=== PATIENT | male | born 1970 | race Hispanic/Latino ===

== ENCOUNTER 2021-08-24 17:32 | Emergency (ER) | payer OTHER ==
[2021-08-24] MEDS ORDERED: ONDANSETRON 4 MG/2 ML VIAL ONE (18:19)
[2021-08-24] MEDS ORDERED: ASPIRIN 81 MG CHEWABLE TABLET ONE (18:19)
[2021-08-24] MEDS ORDERED: MORPHINE 4 MG/ML SYR ONE (18:19)
--- NOTE | 2021-08-24 18:39 | RAD REPORT ---
EXAM DESCRIPTION: Seth Single View08/24/2021 6:21 pm CLINICAL HISTORY: Chest pain COMPARISON: none FINDINGS: The lungs appear clear of acute infiltrate. The heart is normal size IMPRESSION: No acute abnormalities displayed
[2021-08-24 18:40] LABS: Absolute Lymphocytes (CBC) 2.3 K/uL (0.7-4.9); Hematocrit 41.8 % (39.6-49.0); Lymphocytes % 29.1 % (15.3-44.8); MPV 8.2 fL (7.6-11.3); RBC Red Blood Cell Count 4.66 M/uL (4.33-5.43)
[2021-08-24 18:43] LABS: Protime INR 1.18
[2021-08-24 19:00] LABS: ALT/SGPT 85 U/L (12-78); AST/SGOT 25 U/L (15-37); Albumin 3.6 g/dL (3.4-5.0); Alkaline Phosphatase 118 U/L (45-117); BUN Blood Urea Nitrogen 8 mg/dL (7-18); Bicarbonate 25 mmol/L (21-32); Bilirubin Direct < 0.1 mg/dL (0-0.2); Bilirubin Total 0.3 mg/dL (0.2-1.0); Glucose Level 106 mg/dL (74-106); Magnesium 2.3 mg/dL (1.8-2.4); NT PRO-BNP 22 pg/mL (<125); Potassium 3.4 mmol/L (3.5-5.1); Protein, Total 7.5 g/dL (6.4-8.2); Sodium Level 141 mmol/L (136-145); Troponin High Sensitivity 3.9 pg/mL (<58.9)
--- NOTE | 2021-08-24 20:53 | RAD REPORT ---
EXAM DESCRIPTION: CT - Chest For Pe Angio - 08/24/2021 8:35 pm CLINICAL HISTORY: sob COMPARISON: None. TECHNIQUE: Dynamically enhanced axial 3 mm thick images of the chest were obtained during administra tion of <100> mL Isovue 370 IV contrast. Coronal and oblique reconstruction images were generated and reviewed. Exam utilizes a protocol for optimal evaluation of pulmonary arterial tree. Maximum intensity projections 3D imaging was utilized All CT scans are performed using dose optimization technique as appropriate and may include automated exposure control or mA/KV adjustment according to patient size. FINDINGS: A pulmonary embolus is not seen. A thoracic aortic aneurysm is not noted. A pleural effusion is not seen. A pericardial effusion is not seen. A lung consolidation is not present. Aberrant right subclavian artery IMPRESSION: Negative for a pulmonary embolism.
[2021-08-24] MEDS ORDERED: KETOROLAC 30 MG/ML INJ ONE (23:14)
--- NOTE | 2021-08-24 23:36 | EDPHYS ---
Physician Documentation [facility] Name: Jerry Kirkpatrick Age: 51 yrs Sex: Male : 1970 Arrival Date: 08/24/2021 Time: 17:33 Bed 14 Private MD: ED Physician Reva Ruiz HPI: 08/24 17:45 This 51 yrs old Male presents to ER via Ambulatory with complaints of Chest jmm Pain. 17:45 The patient or guardian reports chest pain that is located primarily in the substernal [facility] area. Onset: acutely, just prior to arrival. The pain does not radiate. Associated signs and symptoms: Pertinent positives: shortness of breath. The chest pain is described as aching, sharp. Duration: The patient or guardian reports a single episode, that is still ongoing. Modifying factors: The symptoms are alleviated by nothing. the symptoms are aggravated by nothing. The patient has experienced a previous episode. Historical: - Allergies: 17:43 tramadol; ab2 - PMHx: 17:43 Hypertensive disorder; Depressive disorder; Gastric reflux; ab2 - Immunization history:: Adult Immunizations up to date. - Social history:: Smoking status: Patient denies any tobacco usage or history of. ROS: 17:45 Constitutional: Negative for fever, chills, and weight loss. jmm 17:45 Cardiovascular: Positive for chest pain. 17:45 Respiratory: Positive for shortness of breath. 17:45 All other systems are negative. Exam: 17:45 Constitutional: This is a well developed, well nourished patient who is awake, alert, jmm and in no acute distress. Head/Face: atraumatic. Eyes: EOMI, no conjunctival erythema appreciated ENT: Moist Mucus Membranes Neck: Trachea midline, Supple Chest/axilla: Normal chest wall appearance and motion. 17:45 Respiratory: Normal respirations, no respiratory distress appreciated Abdomen/GI: Non distended, soft Back: Normal ROM Skin: General appearance color normal MS/ Extremity: Moves all extremities, no obvious deformities appreciated, no edema noted to the lower extremities Neuro: Awake and alert Psych: Behavior is normal, Mood is normal, Patient is cooperative and pleasant 17:45 Cardiovascular: Rate: tachycardic, Rhythm: regular, Pulses: no pulse deficits are appreciated. Vital Signs: 17:42 BP 139 / 102; Pulse 127; Resp 18; Temp 98.9; Pulse Ox 99% ; Weight 86.18 kg; Height 5 ab2 ft. 9 in. (175.26 cm); Pain 8/10; 17:45 BP 144 / 99; Pulse 128; Resp 25 S; Pulse Ox 99% on R/A; jg9 18:00 BP 132 / 100; Pulse 117; Resp 26 S; Pulse Ox 95% on R/A; jg9 18:30 BP 139 / 102; Pulse 106; Resp 14 S; Pulse Ox 96% on R/A; jg9 19:28 BP 133 / 96; Pulse 103; Resp 22; Pulse Ox 95% on R/A; Pain 3/10; celena 20:22 BP 134 / 96; Pulse 98; Resp 22; Pulse Ox 95% on R/A; celena 22:12 BP 149 / 98; Pulse 99; Resp 20; Pulse Ox 95% on R/A; celena 23:43 BP 132 / 95; Pulse 79; Resp 20; Pulse Ox 96% on R/A; Pain 2/10; celena 17:42 Body Mass Index 28.06 (86.18 kg, 175.26 cm) ab2 MDM: 17:48 Patient medically screened. [facility] 23:09 The patient was given aspirin in the Emergency Department. Data reviewed: vital signs, [facility] nurses notes. 08/24 17:49 Order name: Basic Metabolic Panel; Complete Time: 19:02 [facility] 08/24 17:49 Order name: CBC with Diff; Complete Time: 18:47 [facility] 08/24 17:49 Order name: LFT's; Complete Time: 19:02 [facility] 08/24 17:49 Order name: Magnesium; Complete Time: 19:02 [facility] 08/24 17:49 Order name: NT PRO-BNP; Complete Time: 19:02 [facility] 08/24 17:49 Order name: PT-INR; Complete Time: 18:47 [facility] 08/24 17:49 Order name: Troponin HS; Complete Time: 19:02 [facility] 08/24 17:49 Order name: XRAY Chest (1 view); Complete Time: 19:02 [facility] 08/24 19:43 Order name: CT Chest For PE Angio; Complete Time: 20:57 [facility] 08/24 21:24 Order name: Troponin High Sensitivity; Complete Time: 22:52 [facility] 08/24 17:45 Order name: EKG - Nurse/Tech; Complete Time: 17:45 ab2 08/24 17:49 Order name: EKG; Complete Time: 17:50 [facility] 08/24 17:49 Order name: Cardiac monitoring; Complete Time: 18:27 [facility] 08/24 17:49 Order name: EKG - Nurse/Tech; Complete Time: 18:13 [facility] 08/24 17:49 Order name: IV Saline Lock; Complete Time: 18:27 [facility] 08/24 17:49 Order name: Labs collected and sent; Complete Time: 18:27 [facility] 08/24 17:49 Order name: O2 Per Protocol; Complete Time: 22:58 [facility] 08/24 17:49 Order name: O2 Sat Monitoring; Complete Time: 18:27 [facility] Administered Medications: 18:25 Drug: Aspirin Chewable Tablet 324 mg Route: PO; j9 18:53 Follow up: Response: No adverse reaction 9 18:25 Drug: morphine 4 mg {Note: RASS-0.} Route: IVP; Site: right forearm; jg9 18:53 Follow up: Response: No adverse reaction; Pain is decreased j9 18:25 Drug: Zofran (Ondansetron) 4 mg Route: IVP; Site: right forearm; jg9 18:53 Follow up: Response: No adverse reaction 9 23:14 Drug: Ketorolac 30 mg Route: IVP; Site: right forearm; celena 23:15 Follow up: Response: No adverse reaction celena Disposition Summary: 08/24/21 23:36 Discharge Ordered Location: Home [facility] Condition: Stable [facility] Diagnosis - Chest pain, unspecified [facility] Followup: [facility] - With: Fan Santos MD - When: 2 - 3 days - Reason: Recheck today's complaints, Continuance of care, Re-evaluation by your physician Discharge Instructions: - Discharge Summary Sheet [facility] - Nonspecific Chest Pain, Adult [facility] Forms: - Medication Reconciliation Form [facility] - Thank You Letter [facility] - Antibiotic Education [facility] - Prescription Opioid Use [facility] Signatures: Dispatcher [employer] EDMarquez Washington PA PA [facility] Kasia Carcamo RN RN jg9 Brittany Angulo RN RN bo Bleininger, Alexis ab2 Corrections: (The following items were deleted from the chart) 17:44 17:43 Allergies: No Known Allergies; ab2 ab2
--- NOTE | 2021-08-24 23:36 | ER ---
Nurse's Notes [facility] Name: Jerry Kirkpatrick Age: 51 yrs Sex: Male : 1970 Arrival Date: 08/24/2021 Time: 17:33 Bed 14 Private MD: Diagnosis: Chest pain, unspecified Presentation: 08/24 17:42 Chief complaint: Patient states: "I started feeling weak and dizzy and then began ab2 having chest pain and SOB.". Coronavirus screen: Vaccine status: Patient reports receiving the 2nd dose of the covid vaccine. Client denies travel out of the [place] in the last 14 days. At this time, the client does not indicate any symptoms associated with coronavirus-19. Ebola Screen: Patient negative for fever greater than or equal to 101.5 degrees Fahrenheit, and additional compatible Ebola Virus Disease symptoms Patient denies exposure to infectious person. Patient denies travel to an Ebola-affected area in the 21 days before illness onset. No symptoms or risks identified at this time. Initial Sepsis Screen: Does the patient meet any 2 criteria? No. Patient's initial sepsis screen is negative. Does the patient have a suspected source of infection? No. Patient's initial sepsis screen is negative. Risk Assessment: Do you want to hurt yourself or someone else? Patient reports no desire to harm self or others. Onset of symptoms is unknown. 17:42 Method Of Arrival: Ambulatory ab2 17:42 Acuity: MARTIN 3 ab2 Triage Assessment: 17:44 General: Appears in no apparent distress. uncomfortable, Behavior is calm, cooperative, ab2 appropriate for age. Pain: Complains of pain in chest. Neuro: Level of Consciousness is awake, alert, obeys commands, Oriented to person, place, time, situation, Appropriate for age Dumper are equal bilaterally Moves all extremities. Gait is steady, Speech is normal, Facial symmetry appears normal. Cardiovascular: Reports chest pain, shortness of breath, Heart tones S1 S2 present Patient's skin is warm and dry. Rhythm is sinus tachycardia. Respiratory: Airway is patent Respiratory effort is even, unlabored, Respiratory pattern is regular, symmetrical. Historical: - Allergies: 17:43 tramadol; ab2 - PMHx: 17:43 Hypertensive disorder; Depressive disorder; Gastric reflux; ab2 - Immunization history:: Adult Immunizations up to date. - Social history:: Smoking status: Patient denies any tobacco usage or history of. Screenin:54 Abuse screen: Denies threats or abuse. Denies injuries from another. Nutritional jg9 screening: No deficits noted. Tuberculosis screening: No symptoms or risk factors identified. Fall Risk None identified. Assessment: 18:53 Pain: Complains of pain in chest Pain does not radiate. Pain began 4 hours ago. jg9 18:54 Reassessment: Patient and/or family updated on plan of care and expected duration. Pain jg9 level reassessed. Patient is alert, oriented x 3, equal unlabored respirations, skin warm/dry/pink. Patient states feeling better. 19:27 Reassessment: Patient appears in no apparent distress at this time. No changes from celena previously documented assessment. The pt still reports feeling SOB, but O2 sat remains above 95% on RA. 20:34 Reassessment: The pt was taken to CT on the stretcher. celena 20:39 Reassessment: The pt has returned from CT. celena 22:10 Reassessment: The pt was given a sandwich, after he requested one. The repeat Troponin celena was sent. Vital Signs: 17:42 BP 139 / 102; Pulse 127; Resp 18; Temp 98.9; Pulse Ox 99% ; Weight 86.18 kg; Height 5 ab2 ft. 9 in. (175.26 cm); Pain 8/10; 17:45 BP 144 / 99; Pulse 128; Resp 25 S; Pulse Ox 99% on R/A; jg9 18:00 BP 132 / 100; Pulse 117; Resp 26 S; Pulse Ox 95% on R/A; jg9 18:30 BP 139 / 102; Pulse 106; Resp 14 S; Pulse Ox 96% on R/A; jg9 19:28 BP 133 / 96; Pulse 103; Resp 22; Pulse Ox 95% on R/A; Pain 3/10; celena 20:22 BP 134 / 96; Pulse 98; Resp 22; Pulse Ox 95% on R/A; celena 22:12 BP 149 / 98; Pulse 99; Resp 20; Pulse Ox 95% on R/A; celena 23:43 BP 132 / 95; Pulse 79; Resp 20; Pulse Ox 96% on R/A; Pain 2/10; celena 17:42 Body Mass Index 28.06 (86.18 kg, 175.26 cm) ab2 ED Course: 17:33 Patient arrived in ED. am2 17:41 Marquez Workman PA is PHCP. jmm 17:41 Rvea Ruiz MD is Attending Physician. jmm 17:43 Triage completed. ab2 17:44 Arm band placed on right wrist. ab2 17:44 Patient has correct armband on for positive identification. Placed in gown. Bed in low ab2 position. Call light in reach. Side rails up X2. hall monitor on. Pulse ox on. NIBP on. 18:13 Kasia Carcamo, RN is Primary Nurse. jg9 18:20 Inserted saline lock: 18 gauge in right forearm, using aseptic technique. Blood jg9 collected. 18:23 XRAY Chest (1 view) In Process Unspecified. EDMS 18:54 Patient maintains SpO2 saturation greater than 95% on room air. jg9 19:27 Primary Nurse role handed off by Kasia Carcamo, MELLISSA celena 19:27 Brittany Angulo, RN is Primary Nurse. celena 19:29 No provider procedures requiring assistance completed. celena 20:37 CT Chest For PE Angio In Process Unspecified. EDMS 22:06 Troponin High Sensitivity Sent. celena 23:35 Fan Santos MD is Referral Physician. jmm 23:44 intact, bleeding controlled, No redness/swelling at site. Pressure dressing applied. celena Administered Medications: 18:25 Drug: Aspirin Chewable Tablet 324 mg Route: PO; jg9 18:53 Follow up: Response: No adverse reaction jg9 18:25 Drug: morphine 4 mg {Note: RASS-0.} Route: IVP; Site: right forearm; jg9 18:53 Follow up: Response: No adverse reaction; Pain is decreased jg9 18:25 Drug: Zofran (Ondansetron) 4 mg Route: IVP; Site: right forearm; jg9 18:53 Follow up: Response: No adverse reaction jg9 23:14 Drug: Ketorolac 30 mg Route: IVP; Site: right forearm; celena 23:15 Follow up: Response: No adverse reaction celena Outcome: 19:29 Condition: stable celena 23:36 Discharge ordered by . jmm 23:44 Discharged to home ambulatory, with family. celena 23:44 Discharge instructions given to patient, Instructed on discharge instructions, follow celena up and referral plans. Demonstrated understanding of instructions, follow-up care. 23:44 Patient left the ED. celena Signatures: Dispatcher [employer] EDMarquez Washington PA PA jmm Moreno, Amanda am2 Gilmore, Jennifer RN RN jg9 Brittany Angulo RN RN bo Bleininger, Alexis ab2 Corrections: (The following items were deleted from the chart) 17:44 17:43 Allergies: No Known Allergies; ab2 ab2
[2021-08-24 23:51] VITALS: TEMP 98.9
[2021-08-25 00:21] VITALS: BP 132/95; O2SAT 96
== END 2021-08-24 23:44 | disposition home or self-care (01) ==
LOC: ER 17:32
DX: R07.9 Chest pain, unspecified (principal); I10 Essential (primary) hypertension; F32.A Depression, unspecified; K21.9 Gastro-esophageal reflux disease without esophagitis; Z88.6 Allergy status to analgesic agent
CPT/HCPCS: 93005; 85025; 80048; 36415; 83735; 85610; 80076; 84484 ×2; 83880; 71275; 71045; 96375; 96374; 99285; Q9967; J2405

== ENCOUNTER 2022-05-09 14:21 | Emergency (ER) | payer SELFPAY ==
[2022-05-09] MEDS ORDERED: KETOROLAC 30 MG/ML INJ ONE (16:34)
--- NOTE | 2022-05-09 17:02 | RAD REPORT ---
EXAM DESCRIPTION: Ribs Right - 05/09/2022 4:46 pm CLINICAL HISTORY: Right rib pain FINDINGS: No fracture is seen
--- NOTE | 2022-05-09 18:27 | RAD REPORT ---
EXAM DESCRIPTION: CT - Chest Abdomen Pelvis W Cont - 05/09/2022 6:06 pm CLINICAL HISTORY: Chest and abdominal pain COMPARISON: CT chest August 2021 TECHNIQUE: Computed axial tomography of the chest, abdomen and pelvis was obtained. 100 cc Isovue-30 0 was administered intravenously. Oral contrast was not requested. This limits evaluation of bowel. All CT scans are performed using dose optimization technique as appropriate and may include automated exposure control or mA/KV adjustment according to patient size. FINDINGS: Lungs are clear. No pneumothorax. No pleural effusion. A pericardial effusion is not present. No mediastinal or hilar lymphadenopathy. An aberrant right subclavian artery is present. Liver, spleen, pancreas, adrenals are unremarkable. Small renal cysts. Tiny nonobstructing left renal calculus. The liver, spleen, pancreas, adrenals and kidneys appear unremarkable. No evidence of diverticulitis Normal appendix IMPRESSION: No acute abnormality is displayed
--- NOTE | 2022-05-09 19:13 | EDPHYS ---
Physician Documentation [facility] Name: Jerry Kirkpatrick Age: 52 yrs Sex: Male : 1970 Arrival Date: 05/09/2022 Time: 14:24 Bed 12 Private MD: Rogelio Lou HPI: 05/09 15:16 This 52 yrs old Male presents to ER via Ambulatory with complaints of jmm Abdominal Pain. 15:16 The patient presents with abdominal pain. Onset: The symptoms/episode began/occurred jmm acutely, today. The symptoms do not radiate. The symptoms are described as sharp. This is a 52-year-old male with history of depression, hypertension that presents emerged part with complaints of right flank and right upper quadrant abdominal pain beginning after an episode of coughing. Patient states that he felt a pop. Denies any vomiting, diarrhea, fever.. Historical: - Allergies: 14:47 tramadol; ap3 - Home Meds: 14:47 gabapentin oral [Active]; amlodipine oral [Active]; ap3 - PMHx: 14:47 depressive disorder; Gastric Reflux; Hypertensive disorder; ap3 - Immunization history:: Client reports receiving the 2nd dose of the Covid vaccine, Flu vaccine is not up to date. - Social history:: Smoking status: Patient denies any tobacco usage or history of. Patient uses alcohol, occasionally. ROS: 15:16 Constitutional: Negative for fever, chills, and weight loss, Cardiovascular: Negative jmm for chest pain, palpitations, and edema, Respiratory: Negative for shortness of breath, cough, wheezing, and pleuritic chest pain. 15:16 Abdomen/GI: Positive for abdominal pain. 15:16 All other systems are negative. Exam: 15:16 Constitutional: This is a well developed, well nourished patient who is awake, alert, jmm and in no acute distress. Head/Face: atraumatic. Eyes: EOMI, no conjunctival erythema appreciated ENT: Moist Mucus Membranes Neck: Trachea midline, Supple 15:16 Cardiovascular: Regular rate and rhythm. No edema appreciated Respiratory: Normal respirations, no respiratory distress appreciated 15:16 Back: Normal ROM Skin: General appearance color normal MS/ Extremity: Moves all extremities, no obvious deformities appreciated, no edema noted to the lower extremities Neuro: Awake and alert Psych: Behavior is normal, Mood is normal, Patient is cooperative and pleasant 15:16 Chest/axilla: Right anterior lateral lower ribs tender to palpation. 15:16 Abdomen/GI: Inspection: abdomen appears normal, Bowel sounds: normal, Palpation: soft, mild abdominal tenderness, in the right upper quadrant. Vital Signs: 14:46 BP 153 / 96; Pulse 76; Resp 18; Temp 99.0; Pulse Ox 98% ; Weight 90.26 kg; Height 5 ft. ap3 9 in. (175.26 cm); Pain 8/10; 17:38 BP 150 / 92; Pulse 70; Resp 15 S; Temp 97.9(O); Pulse Ox 98% on R/A; aa5 19:21 BP 145 / 85; Pulse 72; Resp 19; Pulse Ox 100% on R/A; kd3 14:46 Body Mass Index 29.39 (90.26 kg, 175.26 cm) ap3 MDM: 15:23 Patient medically screened. [facility] 19:11 Data reviewed: vital signs, nurses notes. Counseling: I had a detailed discussion with millicent the patient and/or guardian regarding: the historical points, exam findings, and any diagnostic results supporting the discharge/admit diagnosis, radiology results, the need for outpatient follow up, to return to the emergency department if symptoms worsen or persist or if there are any questions or concerns that arise at home. ED course: Imaging studies are negative for any acute process. I do not currently suspect rib fracture, pneumothorax. Patient vies follow-up PCP otherwise given strict return precautions. Patient understood agrees plan of care.. 05/09 17:28 Order name: Creatinine, Serum zm 05/09 15:16 Order name: Ribs Right XRAY; Complete Time: 17:06 [facility] 05/09 17:14 Order name: CT Chest, Abdomen, Pelvis - W/Contrast; Complete Time: 18:31 [facility] 05/09 17:27 Order name: Saline Lock; Complete Time: 17:48 zm Administered Medications: 16:36 Drug: Ketorolac 30 mg Route: IM; Site: right gluteus; aa5 17:48 Follow up: Response: No adverse reaction; Pain is decreased aa5 Disposition Summary: 05/09/22 19:12 Discharge Ordered Location: Home [facility] Condition: Stable aaliyah Diagnosis - Right chest wall strain [facility] Followup: aaliyahm - With: Private Physician - When: 2 - 3 days - Reason: Recheck today's complaints, Continuance of care, Re-evaluation by your physician Discharge Instructions: - Discharge Summary Sheet millic[facility] - Chest Wall Pain [facility] Forms: - Medication Reconciliation Form millicent - Thank You Letter millicent - Antibiotic Education millicent - Prescription Opioid Use millicent Prescriptions: - Zanaflex 4 mg Oral Tablet - take 1 tablet by ORAL route every 8 hours As needed; 20 tablet; Refills: 0, jm Product Selection Permitted - Diclofenac Sodium 75 mg Oral Tablet Sustained Release - take 1 tablet by ORAL route 2 times per day; 30 tablet; Refills: 0, Product [facility] Selection Permitted Signatures: Dispatcher [employer] EDRogelio Castellon MD MD cha Mickail, Joel, PA PA jmm Calderon, Audri, RN RN aa5 Lillian Moore RN RN ap3 Ashwini Valero
--- NOTE | 2022-05-09 19:13 | ER ---
Nurse's Notes [facility] Name: Jerry Kirkpatrick Age: 52 yrs Sex: Male : 1970 Arrival Date: 05/09/2022 Time: 14:24 Bed 12 Private MD: Diagnosis: Right chest wall strain Presentation: 05/09 14:46 Chief complaint: Patient states: he was coughing, heard a "pop" and then started having ap3 pain under his right ribs. patient stated this started approx 2 hours ago. Coronavirus screen: Client presents with at least one sign or symptom that may indicate coronavirus-19. Ebola Screen: No symptoms or risks identified at this time. Initial Sepsis Screen: Does the patient meet any 2 criteria? No. Patient's initial sepsis screen is negative. Does the patient have a suspected source of infection? No. Patient's initial sepsis screen is negative. Risk Assessment: Do you want to hurt yourself or someone else? Patient reports no desire to harm self or others. Onset of symptoms was May 09, 2022. 14:46 Method Of Arrival: Ambulatory ap3 14:46 Acuity: MARTIN 3 ap3 Triage Assessment: 14:48 General: Appears in no apparent distress. Behavior is calm, cooperative. Pain: ap3 Complains of pain in right breast Pain began suddenly, after coughing. Neuro: Level of Consciousness is awake, alert, obeys commands, Oriented to person, place, time, situation. Cardiovascular: Patient's skin is warm and dry. Respiratory: Reports cough that is Airway is patent Respiratory effort is even, unlabored. GI: Patient currently denies nausea. Historical: - Allergies: 14:47 tramadol; ap3 - Home Meds: 14:47 gabapentin oral [Active]; amlodipine oral [Active]; ap3 - PMHx: 14:47 depressive disorder; Gastric Reflux; Hypertensive disorder; ap3 - Immunization history:: Client reports receiving the 2nd dose of the Covid vaccine, Flu vaccine is not up to date. - Social history:: Smoking status: Patient denies any tobacco usage or history of. Patient uses alcohol, occasionally. Screenin:49 [facility] ED Fall Risk Assessment (Adult) History of falling in the last 3 months, ap3 including since admission No falls in past 3 months (0 pts). Abuse screen: Denies threats or abuse. Nutritional screening: No deficits noted. Tuberculosis screening: No symptoms or risk factors identified. Assessment: 16:30 General: Appears uncomfortable, Behavior is calm, cooperative. Pain: Complains of pain aa5 in right lateral aspect of chest Pain currently is 8 out of 10 on a pain scale. Quality of pain is described as sharp, shooting, Is intermittent, Aggravated by "taking a deep breath and coughing". Neuro: Level of Consciousness is awake, alert, obeys commands, Oriented to person, place, time, situation. Cardiovascular: Heart tones S1 S2 present Rhythm is regular. Respiratory: Reports cough Airway is patent Respiratory effort is even, unlabored, Respiratory pattern is regular, symmetrical, Breath sounds are clear bilaterally. GI: No signs and/or symptoms were reported involving the gastrointestinal system. : No signs and/or symptoms were reported regarding the genitourinary system. EENT: No signs and/or symptoms were reported regarding the EENT system. Derm: Skin is pink, warm \\T\\ dry. Musculoskeletal: Range of motion: intact in all extremities. 17:48 Reassessment: Patient is alert, oriented x 3, equal unlabored respirations, skin aa5 warm/dry/pink. Patient states feeling better. Patient states symptoms have improved. 18:45 Reassessment: Patient is alert, oriented x 3, equal unlabored respirations, skin aa5 warm/dry/pink. Awaiting disposition. . 19:21 GI: Bowel sounds present X 4 quads. Abd is soft and non tender X 4 quads. kd3 Vital Signs: 14:46 BP 153 / 96; Pulse 76; Resp 18; Temp 99.0; Pulse Ox 98% ; Weight 90.26 kg; Height 5 ft. ap3 9 in. (175.26 cm); Pain 8/10; 17:38 BP 150 / 92; Pulse 70; Resp 15 S; Temp 97.9(O); Pulse Ox 98% on R/A; aa5 19:21 BP 145 / 85; Pulse 72; Resp 19; Pulse Ox 100% on R/A; kd3 14:46 Body Mass Index 29.39 (90.26 kg, 175.26 cm) ap3 ED Course: 14:24 Patient arrived in ED. mr 14:29 Marquez Workman PA is PHCP. jm 14:29 Rogelio Loaiza MD is Attending Physician. jmm 14:47 Triage completed. ap3 14:49 Arm band placed on right wrist. ap3 16:30 Renetta Mg, RN is Primary Nurse. aa5 16:30 Patient has correct armband on for positive identification. Placed in gown. Bed in low aa5 position. Call light in reach. Side rails up X 1. 16:48 Ribs Right XRAY In Process Unspecified. EDMS 17:48 Inserted saline lock: 20 gauge in right forearm, using aseptic technique. aa5 18:08 CT Chest, Abdomen, Pelvis - W/Contrast In Process Unspecified. EDMS 19:02 Primary Nurse role handed off by Renetta Mg RN kd3 19:02 Luz Marina Preciado, MELLISSA is Primary Nurse. kd3 19:21 No provider procedures requiring assistance completed. IV discontinued, intact, kd3 bleeding controlled, No redness/swelling at site. Pressure dressing applied. Administered Medications: 16:36 Drug: Ketorolac 30 mg Route: IM; Site: right gluteus; aa5 17:48 Follow up: Response: No adverse reaction; Pain is decreased aa5 Medication: 19:22 VIS not applicable for this client. kd3 Outcome: 19:12 Discharge ordered by MD. [facility] 19:21 Discharged to home ambulatory. kd3 19:21 Condition: stable 19:21 Discharge instructions given to patient, Instructed on discharge instructions, follow up and referral plans. medication usage, Demonstrated understanding of instructions, follow-up care, medications, Prescriptions given X 19:24 Patient left the ED. kd3 Signatures: Dispatcher [employer] EDKY Marquez Workman PA PA jmm Rivera, Mary mr Renetta Mg, RN RN aa5 Lillian Moore RN RN ap3 Luz Marina Preciado, MELLISSA RN kd3 Corrections: (The following items were deleted from the chart) 19:18 17:38 BP 150 / 92; Pulse 70bpm; Resp 15bpm; Spontaneous; Pulse Ox 98% RA; Temp 97.9F aa5 Temporal; aa5
[2022-05-09 19:50] VITALS: TEMP 97.9
[2022-05-09 19:56] VITALS: BP 145/85; O2SAT 100
== END 2022-05-09 19:24 | disposition home or self-care (01) ==
LOC: ER 14:21
DX: S29.011A Strain of muscle and tendon of front wall of thorax, initial encounter (principal); I10 Essential (primary) hypertension
CPT/HCPCS: 71260; 74177; 82565; 96372; 99284; Q9967

== ENCOUNTER 2022-09-25 19:45 | Emergency (ER) | payer SELFPAY ==
--- OUTSIDE RECORDS SUMMARY | 2022-09-25 19:56 | XMS REPORT | Continuity of Care Document ---
:1970 Author Organization [facility] t Address [address] [facility] [address] [place] [id number] Care Team Providers Name Role Phone YOVANA RAMIREZ Attending Clinician Unavailable LAB90 Attending Clinician Unavailable Payers Payer Name Policy Type Policy Number Effective Date Expiration Date Domonique mckeon AETarynRENA [employer] 9 [id number] 2022 00:00:00 SILVER: HMO MODULAR [employer] 94 ON STAND Problems Condition Condition Condition Status Onset Resolution Last Treating Co mments Source Name Details Category Date Date Treatment Clinician Date Well adult Well adult Disease Active K elsemary carmen exam exam 4-19 Seybold 00:00: - 00 Externa l Chronic Chronic Disease Active Chel left left 4-19 Seybold shoulder shoulder 00:00: - pain pain 00 Externa l Chronic Chronic Disease Active Chel pain of pain of -19 Seybold left knee left knee 00:00: - 00 Externa l Gastroesop Gastroesop Disease Active K elsemary carmen hageal hageal 4-19 Seybold reflux reflux 00:00: - disease disease 00 Externa without without l esophagiti esophagiti s s Primary Primary Disease Active Chel hypertensi hypertensi - Se ybold on on 00:00: - 00 Externa l Mixed Mixed Disease Active Chel hyperlipid hyperlipid - Se ybold emia emia 00:00: - 00 Externa l Class 1 Class 1 Disease Active Chel obesity obesity 07-25 Seybold due to due to 00:00: - excess excess 00 Externa calories calories l with with serious serious comorbidit comorbidit y and body y and body mass index mass index (BMI) of (BMI) of 30.0 to 30.0 to 30.9 in 30.9 in adult adult Neuropathy Neuropathy Disease Active K hayleyy 3-22 Seybold 00:00: - 00 Externa l Allergies, Adverse Reactions, Alerts Allergy Allergy Status Severity Reaction(s) Onset Inactive Treating Comm ents Source Name Type Date Date Clinician Tramadol Abelardoi Active Hives Chel ty to 05-14 Seybold adverse 00:00: - reaction 00 Externa s l Social History Social Habit Start Date Stop Date Quantity Comments Source Gender identity Chel lakeold - External Sexual orientation Chel Rudd - External History of tobacco Cigarette Smoker Chel Rudd use - External Cigarettes smoked 2022-08-22 2022-08-22 Chel Rudd current (pack per 00:00:00 00:00:00 - Exter nal day) - Reported Cigarette 2022-08-22 2022-08-22 Chel Rudd pack-years 00:00:00 00:00:00 - External Tobacco use and 2022-08-22 2022-08-22 Smokeless tobacco Ke ofe Santanaybmercedes exposure 00:00:00 00:00:00 non-user - External Alcohol intake 2022-08-22 2022-08-22 Ex-drinker Chel camacho 00:00:00 00:00:00 (finding) - External Education 2022-07-25 2022-07-25 13 Chel Santanaybmercedes 00:00:00 00:00:00 - External History of Social 2022-07-25 2022-07-25 Chel Rudd function 00:00:00 00:00:00 - External Sex [birth year] Chel lakemercedes 00:00:00 00:00:00 - External Smoking Status Start Date Stop Date Source Ex-smoker 2022-08-22 00:00:00 2022-08-22 00:00:00 Chel montgomery - External Medications Ordered Filled Start Stop Current Ordering Indication Dosage Frequency Signature Comments Components Source Medication Medication Date Date Medication? Clinician (SIG) Name Name Pantoprazol Yes [id number] 40mg Take 1 Chel mckeon Sodium 40 4-19 tablet (40 Se ybold MG oral 00:00: mg total) - Tablet 00 by mouth Externa Delayed daily l Response Meloxicam 0 Yes [id number] 15mg QD Take 1 Chel 15 MG oral 4-19 tablet (15 Sey bold Tablet 00:00: mg total) - 00 by mouth Externa daily as l needed for pain Gabapentin 2022-0 Yes [id number] 600mg Take 2 Chel 300 MG oral 3-22 capsules Seyb old Capsule 00:00: (600 mg - 00 total) by Externa mouth 3 l times daily Amlodipine 2022-0 Yes [id number] 10mg Take 1 K elsey Besylate 10 3-22 tablet (10 Se ybold MG oral 00:00: mg total) - Tablet 00 by mouth Externa daily l Rosuvastati 2022-0 Yes [id number] 10mg Take 1 Chel n Calcium 3-22 tablet (10 Seyb old 10 MG oral 00:00: mg total) - Tablet 00 by mouth Externa daily l Gabapentin 2022-0 Yes [id number] 600mg Take 2 Chel 300 MG oral 3-22 capsules Seyb old Capsule 00:00: (600 mg - 00 total) by Externa mouth 3 l times daily Amlodipine 2022-0 Yes [id number] 10mg Take 1 K elsey Besylate 10 3-22 tablet (10 Se ybold MG oral 00:00: mg total) - Tablet 00 by mouth Externa daily l Rosuvastati 2022-0 Yes [id number] 10mg Take 1 Chel n Calcium 3-22 tablet (10 Seyb old 10 MG oral 00:00: mg total) - Tablet 00 by mouth Externa daily l Rosuvastati 2022-0 2022- No 10mg Take 10 mg Chel n Calcium 07-10-22 by mouth Seybo ld 10 MG oral 00:00: 00:00 daily - Tablet 00 :00 Externa l Amlodipine 2022-0 2022- No 10mg Take 10 mg Chel Besylate 10 05-14- by mouth Sey bold MG oral 00:00: 00:00 daily - Tablet 00 :00 Externa l Gabapentin 2022-0 2022- No 300mg Take 300 K elsey 300 MG oral 05-14-22 mg by Seybol d Capsule 00:00: 00:00 mouth 3 - 00 :00 times Externa daily l Immunizations Ordered Immunization Filled Immunization Date Status Commen ts Source Name Name [facility]19 Vaccine 2021-02-18 Completed Chel Youssef eybold Moderna (Spikevax), 00:00:00 - Ext ernal Mrna-lnp, Davis Protein, Pf Covid-19 Vaccine 2021-01-22 Completed Chel Youssef eybold Moderna (Spikevax), 00:00:00 - Ext ernal Mrna-lnp, Davis Protein, Pf Tdap- (Boostrix, 2014-12-29 Completed Chel simonbodenzel Adacel) 00:00:00 - External Vital Signs Vital Name Observation Time Observation Value Comments Source Systolic blood 2022-08-22 14:00:00 168 mm[Hg] Chel Seybold - pressure External Diastolic blood 2022-08-22 14:00:00 96 mm[Hg] Anibalse y Seybold - pressure External Heart rate 2022-08-22 14:00:00 109 /min Chel simonbold - External Body temperature 2022-08-22 14:00:00 37.06 Gloria Araceli simon Seybold - External Respiratory rate 2022-08-22 14:00:00 15 /min Araceli simon Seybold - External Body height 2022-08-22 14:00:00 177.8 cm Chel simonbodenzel - External Body weight 2022-08-22 14:00:00 95.255 kg Chel simonbold - External BMI 2022-08-22 14:00:00 30.13 kg/m2 Chel simonbold - External Systolic blood 2022-07-25 16:39:00 134 mm[Hg] Chel Santanaybold - pressure External Diastolic blood 2022-07-25 16:39:00 84 mm[Hg] Anibalse mary carmen Seybold - pressure External Heart rate 2022-07-25 16:39:00 93 /min Chel simonbold - External Body temperature 2022-07-25 16:39:00 36.67 Gloria Araceli alfred Seybold - External Respiratory rate 2022-07-25 16:39:00 15 /min Araceli simon Seybold - External Body height 2022-07-25 16:39:00 177.8 cm Chel simonbold - External Body weight 2022-07-25 16:39:00 95.255 kg Chel S eybold - External BMI 2022-07-25 16:39:00 30.13 kg/m2 Chel Youssef eybodenzel - External Procedures This patient has no known procedures. Encounters Start End Encounter Admission Attending Care Care Encounter Source Date/Time Date/Time Type Type Clinicians Facility Department ID 2022-09-21 2022-09-21 Outpatient CHEL RAMIREZ [id number] Chel 00:00:00 00:00:00 YOVANA Seybol d 2022-09-20 2022-09-20 Outpatient CHEL RAMIREZ [id number] Chel 14:15:00 14:15:00 YOVANA Seybol d 2022-09-13 2022-09-13 Outpatient CHEL RAMIREZ [id number] Chel 00:00:00 00:00:00 YOVANA Seybol d 2022-09-10 2022-09-10 Outpatient PRECHEL GUAMAN [id number] Chel 00:00:00 00:00:00 YOVANA Seybol d 2022-08-28 2022-08-28 Outpatient PRECHEL GUAMAN [id number] Chel 00:00:00 00:00:00 YOVANA Seybol d 2022-08-27 2022-08-27 Outpatient PRECHEL GUAMAN [id number] Chel 00:00:00 00:00:00 YOVANA Seybol d 2022-08-23 2022-08-23 Outpatient CHEL RAMIREZ [id number] Chel 00:00:00 00:00:00 YOVANA Seybol d 2022-08-22 2022-08-22 Outpatient LAB90 CHEL MILLIGAN [id number] Chel 10:00:00 10:00:00 Seybol d 2022-08-22 2022-08-22 Outpatient CHEL RAMIREZ [id number] Chel 09:15:00 09:15:00 YOVANA Seybol d 2022-08-06 2022-08-06 Outpatient PRECHEL GUAMAN [id number] Chel 00:00:00 00:00:00 YOVANA Seybol d 2022-07-25 2022-07-25 Outpatient CHEL RAMIREZ [id number] Chel 11:15:00 11:15:00 YOVANA zapata Results This patient has no known results.
--- NOTE | 2022-09-25 20:50 | ER ---
Nurse's Notes [facility] Name: Jerry Kirkpatrick Age: 52 yrs Sex: Male : 1970 Arrival Date: 09/25/2022 Time: 19:45 Bed IW1 Private MD: Diagnosis: Fall, Injury of fall Presentation: 09/25 20:18 Chief complaint: Patient states: sitting on chair and passed out falling and hitting kl head on cement floor small abrasion noted to forehead pt now reports dizziness. Coronavirus screen: Vaccine status: Patient reports receiving the 2nd dose of the covid vaccine. Ebola Screen: Patient negative for fever greater than or equal to 101.5 degrees Fahrenheit, and additional compatible Ebola Virus Disease symptoms. Initial Sepsis Screen: Does the patient meet any 2 criteria? No. Patient's initial sepsis screen is negative. Does the patient have a suspected source of infection? No. Patient's initial sepsis screen is negative. Risk Assessment: Do you want to hurt yourself or someone else? Patient reports no desire to harm self or others. 20:18 Method Of Arrival: Ambulatory 20:18 Acuity: MARTIN 3 kl 20:50 Note pt not in lobby. Triage Assessment: 20:22 General: Appears in no apparent distress. comfortable, Behavior is calm, cooperative. kl Pain: Complains of pain in top of head. Neuro: No deficits noted. Level of Consciousness is awake, alert, obeys commands, Oriented to person, place, time, situation, Stone Rigger are equal bilaterally Moves all extremities. Full function Gait is steady, Speech is normal, Facial symmetry appears normal, Pupils are PERRLA. Historical: - Allergies: 20:21 tramadol; kl - Home Meds: 20:21 amlodipine 5 mg oral tablet [Active]; gabapentin Oral [Active]; kl - PMHx: 20:21 depressive disorder; Gastric Reflux; Hypertensive disorder; kl - PSHx: 20:21 carpal tunnel; kl - Immunization history:: Adult Immunizations not up to date. - Social history:: Smoking status: Patient reports the use of cigarette tobacco products, smokes one pack cigarettes per day. Vital Signs: 20:18 BP 139 / 91; Pulse 72; Resp 18; Temp 98.2(TE); Pulse Ox 99% on R/A; Weight 95.25 kg kl (R); Height 5 ft. 9 in. ; Pain 9/10; 20:18 Body Mass Index 31.01 (95.25 kg, 175.26 cm) 20:18 Pain Scale: Adult [place] Coma Score: 20:22 Eye Response: spontaneous(4). Motor Response: obeys commands(6). Verbal Response: kl oriented(5). Total: 15. ED Course: 19:48 Patient arrived in ED. [email or web address] 20:21 Triage completed. 20:48 Heladio Lal MD is Attending Physician. sp4 Administered Medications: No medications were administered Outcome: 22:10 Patient left the ED. Signatures: Sonal Reeves RN RN Rosy Lopez RN RN Kasia Mckeon [email or web address] Heladio Lal MD MD sp4
--- NOTE | 2022-09-25 20:50 | EDPHYS ---
Physician Documentation [facility] Name: Jerry Kikrpatrick Age: 52 yrs Sex: Male : 1970 Arrival Date: 09/25/2022 Time: 19:45 Bed IW1 Private MD: ED Physician Heladio Lal HPI: 09/25 20:48 This 52 yrs old Male presents to ER via Ambulatory with complaints of Probable sp4 Seizure, Fall Injury. Historical: - Allergies: 20:21 tramadol; kl - Home Meds: 20:21 amlodipine 5 mg oral tablet [Active]; gabapentin Oral [Active]; kl - PMHx: 20:21 depressive disorder; Gastric Reflux; Hypertensive disorder; kl - PSHx: 20:21 carpal tunnel; kl - Immunization history:: Adult Immunizations not up to date. - Social history:: Smoking status: Patient reports the use of cigarette tobacco products, smokes one pack cigarettes per day. Vital Signs: 20:18 BP 139 / 91; Pulse 72; Resp 18; Temp 98.2(TE); Pulse Ox 99% on R/A; Weight 95.25 kg kl (R); Height 5 ft. 9 in. ; Pain 9/10; 20:18 Body Mass Index 31.01 (95.25 kg, 175.26 cm) 20:18 Pain Scale: Adult kl [place] Coma Score: 20:22 Eye Response: spontaneous(4). Motor Response: obeys commands(6). Verbal Response: kl oriented(5). Total: 15. MDM: 20:50 Patient medically screened. sp4 Administered Medications: No medications were administered Disposition: 20:50 Chart complete. sp4 Disposition Summary: 09/25/22 20:50 Eloped Disposition: before being seen by provider sp4 Reason: (see nurse's notes) sp4 Condition: Fair sp4 Diagnosis - Fall, Injury of fall sp4 Followup: sp4 - With: Private Physician - When: As needed - Reason: Signatures: Sonal Reeves RN Heladio Pruitt MD MD sp4
[2022-09-25 22:57] VITALS: BP 139/91; TEMP 98.2; O2SAT 99
== END 2022-09-25 22:10 | disposition left against medical advice (07) ==
LOC: ER 19:45
DX: Z02.9 Encounter for administrative examinations, unspecified (principal)

== ENCOUNTER 2023-10-02 19:10 | Emergency (ER) | payer OTHER, SELFPAY ==
--- OUTSIDE RECORDS SUMMARY | 2023-10-02 19:15 | XMS REPORT | Continuity of Care Document ---
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 ON 9 [id number] 2023 00:00:00 [facility] GINA ISLAS COPAY FOCUS 9 [id number] 2023 00:00:00 Problems Condition Name Condition Details Condition Category Status Onset Date Resolution Date Last Treatment Date Treating Clinician Comments Source Insomnia due to medical condition - Improved Insomnia due to medical condition - Improved Disease Active 2022-05- 00:00: 00 Elisa Hilario Externa albin Mild major depression Mild major depression Disease Active 12-20 00:00: 00 Elisa Rudd - Externa albin COLETTE (generaliz ed anxiety disorder) COLETTE (generaliz ed anxiety disorder) Disease Active 12-20 00:00: 00 Elisa Rudd - Externa albin Well adult exam Well adult exam Disease Active 08-22 00:00: 00 Elisa Hilario Externa albin Chronic left shoulder pain Chronic left shoulder pain Disease Active 08-22 00:00: 00 Elisa Rudd - Externa albin Chronic pain of left knee Chronic pain of left knee Disease Active 08-22 00:00: 00 Elisa Rudd - Externa l Gastroesop hageal reflux disease without esophagiti s Gastroesop hageal reflux disease without esophagiti s Disease Active 08-22 00:00: 00 Elisa Rudd - Externa l Primary hypertensi on Primary hypertensi on Disease Active 07-25 00:00: 00 Elisa Rudd - Externa l Mixed hyperlipid emia Mixed hyperlipid emia Disease Active 07-25 00:00: 00 Elisa Rudd - Externa l Class 1 obesity due to excess calories with serious comorbidit y and body mass index (BMI) of 30.0 to 30.9 in adult Class 1 obesity due to excess calories with serious comorbidit y and body mass index (BMI) of 30.0 to 30.9 in adult Disease Active 07-25 00:00: 00 Elisa Rudd - Externa albin Neuropathy Neuropathy Disease Active 07-25 00:00: 00 Elisa Rudd - Externa l Class 1 obesity due to excess calories with serious comorbidit y and body mass index (BMI) of 30.0 to 30.9 in adult Class 1 obesity due to excess calories with serious comorbidit y and body mass index (BMI) of 30.0 to 30.9 in adult Disease Active 07-25 00:00: 00 Elisa Rudd - Externa l Allergies, Adverse Reactions, Alerts Allergy Name Allergy Type Status Severity Reaction(s) Onset Date Inactive Date Treating Clinician Comments Source Tramadol Propensi ty to adverse reaction s Active Hives 05-14 00:00: 00 Elisa Rudd - Externa l Social History Social Habit Start Date Stop Date Quantity Comments Source Gender identity Araceli Rudd - External Sexual orientation Rylan Rudd - External History of tobacco use Cigarette Smoker Elisa long - External Cigarettes smoked current (pack per day) - Reported 2023-03-12 00:00:00 2023-03-12 00:00:00 Elisa Rudd - External Cigarette pack-years 2023-03-12 00:00:00 2023-03-12 00:00:00 Elisa Rudd - External Tobacco use and exposure 2023-03-12 00:00:00 2023-03-12 00:00:00 Smokeless tobacco non-user Elisa Rudd - External Alcohol intake 2023-03-12 00:00:00 2023-03-12 00:00:00 Ex-drinker (finding) Elisa Rudd - External History of Social function 2023-01-21 00:00:00 2023-01-21 00:00:00 Elisa Rudd - External Education - What is the highest level of school you have completed or the highest degree you have received? 2022-07-25 00:00:00 2022-07-25 00:00:00 High school graduate Elisa Rudd - External Sex Assigned At 1970 00:00:00 1970 00:00:00 Elisa Rudd - Valentino Smoking Status Start Date Stop Date Source Ex-smoker 2023-03-12 00:00:00 2023-03-12 00:00:00 Rylan Rudd - External Medications Ordered Medication Name Filled Medication Name Start Date Stop Date Current Medication? Ordering Clinician Indication Dosage Frequency Signature (SIG) Comments Components Source Sertraline HCl 50 MG oral Tablet 2022-05 00:00: 00 Yes [id number] 50mg Take 1 tablet (50 mg total) by mouth daily Take in addition to 20 mg capsule. Elisa talamantes Albuterol HFA 108 (90 Base) MCG/ACT IN AERS 2022-05 00:00: 00 Yes [id number] 2{puff} Q.25D Inhale 2 puffs into the lungs every 6 hours as needed for wheezing. Elisa talamantes Fluticasone Furoate 100 MCG/ACT inhalation AEROSOL POWDER, BREATH ACTIVATED 2022-05 00:00: 00 Yes [id number] 1{puff} Inhale 1 puff into the lungs daily. Elisa talamantes Doxepin HCl 3 MG oral Tablet 2022-05 00:00: 00 Yes [id number] 105 1{tbl} Take 1 tablet by mouth every night at bedtime. Elisa talamantes Gabapentin 300 MG oral Capsule 2022-05 00:00: 00 Yes [id number] 600mg Take 2 capsules (600 mg total) by mouth 3 times daily. Elisa talamantes Sertraline HCl 25 MG oral Tablet 2022-05 00:00: 00 Yes [id number] 25mg Take 1 tablet (25 mg total) by mouth daily Take in addition to 50 mg tabs. Elisa talamantes Fluoxetine HCl 20 MG oral Capsule 2022-05 00:00: 00 03-12 00:00 :00 No [id number] 20mg Take 1 capsule (20 mg total) by mouth daily Take in addition to 50 mg capsule. Elisa talamantes Rosuvastati n Calcium 10 MG oral Tablet 2022-05 00:00: 00 Yes 10mg Take 1 tablet (10 mg total) by mouth daily. Elisa talamantes busPIRone HCl 10 MG oral Tablet 01-21 00:00: 00 Yes [id number] 10mg TAKE 1 TABLET BY MOUTH TWICE A DAY Elisa talamantes Trazodone HCl 50 MG oral Tablet 01-21 00:00: 00 Yes [id number] 105 TAKE 1 TO 2 TABLETS BY MOUTH NIGHTLY NEEDED FRO SLEEP. Elisa talamantes Lisinopril 10 MG oral Tablet 01-21 00:00: 00 Yes [id number] 10mg TAKE 1 TABLET BY MOUTH DAILY Elisa talamantes Sertraline HCl 50 MG oral Tablet 01-21 00:00: 00 03-12 00:00 :00 No [id number] 50mg TAKE 1 TABLET BY MOUTH DAILY Elisa talamantes Amlodipine Besylate 10 MG oral Tablet 01-15 00:00: 00 Yes 10mg Take 1 tablet (10 mg total) by mouth daily. Elisa talamantes busPIRone HCl 10 MG oral Tablet 01-15 00:00: 00 Yes [id number] 10mg Take 1 tablet (10 mg total) by mouth 3 times daily. Elisa talmaantes Gabapentin 300 MG oral Capsule 01-15 00:00: 00 Yes [id number] 600mg Take 2 capsules (600 mg total) by mouth 3 times daily. Elisa talamantes Lisinopril 10 MG oral Tablet 01-15 00:00: 00 Yes [id number] 10mg Take 1 tablet (10 mg total) by mouth daily. Elisa talamantes Propranolol HCl 20 MG oral Tablet 01-15 00:00: 00 Yes [id number] 20mg Q.[id number] 3D Take 1 tablet (20 mg total) by mouth 3 times daily as needed. Elisa talamantes Sertraline HCl 50 MG oral Tablet 01-15 00:00: 00 Yes [id number] 50mg Take 1 tablet (50 mg total) by mouth daily. Elisa talamantes Trazodone HCl 50 MG oral Tablet 01-15 00:00: 00 Yes [id number] 105 Take 1-2 tabs nightly as needed for sleep. Elisa talamantes Gabapentin 300 MG oral Capsule 01-10 00:00: 00 01-15 00:00 :00 No [id number] 600mg TAKE TWO CAPSULES BY MOUTH THREE TIMES A DAY Elisa talamantes Pantoprazol e Sodium 40 MG oral Tablet Delayed Response 12-24 00:00: 00 Yes 40mg TAKE 1 TABLET BY MOUTH DAILY Elisa talamantes Gabapentin 300 MG oral Capsule 12-20 00:00: 00 Yes [id number] 600mg Take 2 capsules (600 mg total) by mouth 3 times daily Elisa talamantes Sertraline HCl 50 MG oral Tablet 12-20 00:00: 00 Yes [id number] 50mg Take 1 tablet (50 mg total) by mouth daily Elisa talamantes Lisinopril 10 MG oral Tablet 12-20 00:00: 00 Yes [id number] 10mg Take 1 tablet (10 mg total) by mouth daily Elisa talamantes busPIRone HCl 10 MG oral Tablet 12-20 00:00: 00 Yes [id number] 10mg Take 1 tablet (10 mg total) by mouth 3 times daily Elisa talamantes Trazodone HCl 50 MG oral Tablet 12-20 00:00: 00 Yes [id number] 105 Take 1-2 tabs nightly as needed for sleep Elisa talamantes Propranolol HCl 20 MG oral Tablet 12-20 00:00: 00 Yes [id number] 20mg Q.[id number] 3D Take 1 tablet (20 mg total) by mouth 3 times daily as needed Elisa talamantes Sertraline HCl 25 MG oral Tablet 12-06 00:00: 00 Yes [id number] 25mg Take 1 tablet (25 mg total) by mouth daily Elisa talamantes busPIRone HCl 10 MG oral Tablet 12-06 00:00: 00 Yes [id number] 10mg Take 1 tablet (10 mg total) by mouth 2 times daily Elisa talamantes Propranolol HCl 20 MG oral Tablet 12-06 00:00: 00 Yes [id number] 20mg Q.[id number] 3D Take 1 tablet (20 mg total) by mouth 3 times daily as needed Elisa talamantes Ondansetron HCl 4 MG oral Tablet 10-22 00:00: 00 12-06 00:00 :00 No [id number] TAKE 1 TABLET BY MOUTH EVERY 8 HOURS NEEDED FOR NAUSEA Elisa talamantes Pseudoeprome-B romphen-DM 30-2-10 MG/5ML oral Syrup - 00:00: 00 12-06 00:00 :00 No [id number] TAKE 10 ML BY MOUTH FOUR TIMES A DAY NEEDED Elisa talamantes Pantoprazol e Sodium 40 MG oral Tablet Delayed Response 10-11 00:00: 00 12-06 00:00 :00 No [id number] TAKE ONE TABLET BY MOUTH DAILY Elisa talamantes Meloxicam 15 MG oral Tablet 10-11 00:00: 00 12-06 00:00 :00 No [id number] TAKE 1 TABLET BY MOUTH ONCE DAILY NEEDED FOR PAIN Elisa Seybold - Externa l Pseudoeph-B romphen-DM 30-2-10 MG/5ML oral Syrup -07 00:00: 00 Yes [id number] 10mL Q.25D Take 10 mL by mouth 4 times daily as needed Elisa Hilario Externa l Ondansetron HCl 4 MG oral Tablet 6-07 00:00: 00 Yes [id number] 4mg Q.[id number] 3D Take 1 tablet (4 mg total) by mouth every 8 hours as needed for nausea Elisa Browna albin Gabapentin 300 MG oral Capsule 5-31 00:00: 00 Yes [id number] TAKE TWO CAPSULES BY MOUTH THREE TIMES A DAY Elisa Hilario Externa albin Meloxicam 15 MG oral Tablet -24 00:00: 00 Yes [id number] TAKE ONE TABLET BY MOUTH DAILY NEEDED FOR PAIN Elisa Hilario Externa albin [place]-3 Fatty Acids (Fish Oil) 1000 MG oral Capsule 08-23 00:00: 00 12-06 00:00 :00 No [id number] 1000mg Take 1 capsule (1,000 mg total) by mouth 2 times daily Elisa Browna albin Pantoprazol e Sodium 40 MG oral Tablet Delayed Response 08-22 00:00: 00 Yes [id number] 40mg Take 1 tablet (40 mg total) by mouth daily Elisa Hilario Externeliza talamantes Meloxicam 15 MG oral Tablet 08-22 00:00: 00 Yes [id number] 15mg QD Take 1 tablet (15 mg total) by mouth daily as needed for pain Elisa Browna albin Gabapentin 300 MG oral Capsule 07-25 00:00: 00 Yes [id number] 600mg Take 2 capsules (600 mg total) by mouth 3 times daily Elisa Hilario Externa albin Amlodipine Besylate 10 MG oral Tablet 07-25 00:00: 00 01-15 00:00 :00 No [id number] 10mg Take 1 tablet (10 mg total) by mouth daily Elisa Hilario Externa albin Rosuvastati n Calcium 10 MG oral Tablet 07-25 00:00: 00 12-06 00:00 :00 No [id number] 10mg Take 1 tablet (10 mg total) by mouth daily Elisa talamantes Rosuvastati n Calcium 10 MG oral Tablet 07-10 00:00: 00 07-25 00:00 :00 No 10mg Take 10 mg by mouth daily Elisa talamantes Amlodipine Besylate 10 MG oral Tablet 05-14 00:00: 00 07-25 00:00 :00 No 10mg Take 10 mg by mouth daily Elisa talamantes Gabapentin 300 MG oral Capsule 05-14 00:00: 00 07-25 00:00 :00 No 300mg Take 300 mg by mouth 3 times daily Elisa talamantes Immunizations Ordered Immunization Name Filled Immunization Name Date Status Comments Source Influenza, Injectable, Mdck, Quadrivalent With Preservative 2023-01-15 00:00:00 Completed Elisa Schumachermercedes - External Covid-19 Vaccine Moderna (Spikevax), Mrna-lnp, Davis Protein, Pf 2021-02-18 00:00:00 Completed Elisa aleksandramercedes - External Covid-19 Vaccine Moderna (Spikevax), Mrna-lnp, Davis Protein, Pf 2021-02-18 00:00:00 Completed Elisa aleksandramercedes - External Covid-19 Vaccine Moderna (Spikevax), Mrna-lnp, Davis Protein, Pf 2021-02-18 00:00:00 Completed Elisa Tobin - External Covid-19 Vaccine Moderna (Spikevax), Mrna-lnp, Davis Protein, Pf 2021-02-18 00:00:00 Completed Elisajaswant Rudd - External Covid-19 Vaccine Moderna (Spikevax), Mrna-lnp, Davis Protein, Pf 2021-02-18 00:00:00 Completed Elisa Rudd - External Covid-19 Vaccine Moderna (Spikevax), Mrna-lnp, Davis Protein, Pf 2021-01-22 00:00:00 Completed Elisa Tobin - External Covid-19 Vaccine Moderna (Spikevax), Mrna-lnp, Davis Protein, Pf 2021-01-22 00:00:00 Completed Elisa Santanaybold - External Covid-19 Vaccine Moderna (Spikevax), Mrna-lnp, Davis Protein, Pf 2021-01-22 00:00:00 Completed Elisa ybold - External Covid-19 Vaccine Moderna (Spikevax), Mrna-lnp, Davis Protein, Pf 2021-01-22 00:00:00 Completed Elisa Santanaybold - External Covid-19 Vaccine Moderna (Spikevax), Mrna-lnp, Davis Protein, Pf 2021-01-22 00:00:00 Completed Elisa Santanaybmercedes - External Tdap- (Boostrix, Adacel) 2014-12-29 00:00:00 Completed Elisa Santanaybold - External Tdap- (Boostrix, Adacel) 2014-12-29 00:00:00 Completed Elisa Rudd - External Tdap- (Boostrix, Adacel) 2014-12-29 00:00:00 Completed Elisa Santanaybold - External Tdap- (Boostrix, Adacel) 2014-12-29 00:00:00 Completed Elisa ybold - External Tdap- (Boostrix, Adacel) 2014-12-29 00:00:00 Completed Elisa Santanaybmercedes - External Tdap- (Boostrix, Adacel) Unknown Completed Elisa Santanaybold - External Covid-19 Vaccine Moderna (Spikevax), Mrna-lnp, Davis Protein, Pf Unknown Completed Elisa Rudd - External Covid-19 Vaccine Moderna (Spikevax), Mrna-lnp, Davis Protein, Pf Unknown Completed Elisa Santanaybold - External Influenza, Injectable, Mdck, Quadrivalent With Preservative Unknown Completed Elisa Rudd - External Vital Signs Vital Name Observation Time Observation Value Comments S ource Systolic blood pressure 2023-03-12 16:21:00 166 mm[Hg] Elisa Lott ld - External Diastolic blood pressure 2023-03-12 16:21:00 98 mm[Hg] Elisa Lott ld - External Heart rate 2023-03-12 16:21:00 73 /min Zaria Rudd - External Body temperature 2023-03-12 16:21:00 36.72 Gloria Elisa Seybold - External Respiratory rate 2023-03-12 16:21:00 15 /min Elisa Seybold - External Body height 2023-03-12 16:21:00 177.8 cm Araceli ey Seybold - External Body weight 2023-03-12 16:21:00 97.07 kg Araceli ey Seybold - External BMI 2023-03-12 16:21:00 30.71 kg/m2 Araceli ey Seybold - External Oxygen saturation in Arterial blood by Pulse oximetry 2023-03-12 16:21:00 97 /min Elisa Seybo ld - External Systolic blood pressure 2023-01-15 15:08:00 132 mm[Hg] Elisa Seybo ld - External Diastolic blood pressure 2023-01-15 15:08:00 82 mm[Hg] Elisa Seybo ld - External Heart rate 2023-01-15 14:47:00 122 /min Kelse y Seybold - External Body temperature 2023-01-15 14:47:00 35.67 Gloria Elisa Seybold - External Respiratory rate 2023-01-15 14:47:00 15 /min Elisa Seybold - External Body height 2023-01-15 14:47:00 177.8 cm Araceli ey Seybold - External Body weight 2023-01-15 14:47:00 92.08 kg Araceli ey Seybold - External BMI 2023-01-15 14:47:00 29.13 kg/m2 Araceli ey Seybold - External Systolic blood pressure 2022-12-20 15:27:00 146 mm[Hg] Elisa Seybo ld - External Diastolic blood pressure 2022-12-20 15:27:00 92 mm[Hg] Elisa Seybo ld - External Heart rate 2022-12-20 15:19:00 75 /min Kelse y Seybold - External Body temperature 2022-12-20 15:19:00 36.61 Gloria Elisa Seybold - External Respiratory rate 2022-12-20 15:19:00 15 /min Elisa Seybold - External Body height 2022-12-20 15:19:00 177.8 cm Araceli ey Seybold - External Body weight 2022-12-20 15:19:00 97.977 kg Araceli ey Seybold - External BMI 2022-12-20 15:19:00 30.99 kg/m2 Araceli ey Seybold - External Oxygen saturation in Arterial blood by Pulse oximetry 2022-12-20 15:19:00 99 /min Elisa Seybo ld - External Systolic blood pressure 2022-12-06 17:50:00 150 mm[Hg] Elisa Seybo ld - External Diastolic blood pressure 2022-12-06 17:50:00 84 mm[Hg] Elisa Seybo ld - External Heart rate 2022-12-06 17:50:00 76 /min Kelse y Seybold - External Body temperature 2022-12-06 17:50:00 37 Gloria Elisa Seybold - External Respiratory rate 2022-12-06 17:50:00 15 /min Elisa Seybold - External Body height 2022-12-06 17:50:00 177.8 cm Araceli ey Seybold - External Body weight 2022-12-06 17:50:00 97.523 kg Araceli ey Seybold - External BMI 2022-12-06 17:50:00 30.85 kg/m2 Araceli ey Seybold - External Oxygen saturation in Arterial blood by Pulse oximetry 2022-12-06 17:50:00 97 /min Elisa Seybo ld - External Systolic blood pressure 2022-08-22 14:00:00 168 mm[Hg] Elisa Seybo ld - External Diastolic blood pressure 2022-08-22 14:00:00 96 mm[Hg] Elisa Seybo ld - External Heart rate 2022-08-22 14:00:00 109 /min Kelse y Seybold - External Body temperature 2022-08-22 14:00:00 37.06 Gloria Elisa Seybold - External Respiratory rate 2022-08-22 14:00:00 15 /min Elisa Seybold - External Body height 2022-08-22 14:00:00 177.8 cm Araceli ey Seybold - External Body weight 2022-08-22 14:00:00 95.255 kg Araceli ey Seybold - External BMI 2022-08-22 14:00:00 30.13 kg/m2 Araceli ey Seybold - External Systolic blood pressure 2022-07-25 16:39:00 134 mm[Hg] Elisa Santanaybo ld - External Diastolic blood pressure 2022-07-25 16:39:00 84 mm[Hg] Elisa Schumachero ld - External Heart rate 2022-07-25 16:39:00 93 /min Zaria y Seybold - External Body temperature 2022-07-25 16:39:00 36.67 Gloria Elisa Santanaybold - External Respiratory rate 2022-07-25 16:39:00 15 /min Elisa Santanaybold - External Body height 2022-07-25 16:39:00 177.8 cm Araceli simon Seybold - External Body weight 2022-07-25 16:39:00 95.255 kg Araceli simon Seybold - External BMI 2022-07-25 16:39:00 30.13 kg/m2 Araceli ey Seybold - External Encounters Start Date/Time End Date/Time Encounter Type Admission Type Attending [facility] Care Department Encounter ID Source 2023-08-26 00:00:00 2023-08-26 00:00:00 Outpatient CARMEN JEFF [id number] Elisa Tobin 2023-08-14 00:00:00 2023-08-14 00:00:00 Outpatient YOVANA RAMIREZ [id number] Elisa Tobin 2023-08-14 00:00:00 2023-08-14 00:00:00 Outpatient CARMEN JEFF [id number] Elisa Tobin 2023-07-11 00:00:00 2023-07-11 00:00:00 Outpatient YOVANA RAMIREZ [id number] Elisa Winsomemercedes 2023-06-15 00:00:00 2023-06-15 00:00:00 Outpatient CARMEN JEFF [id number] Elisa geraldine 2023-06-10 00:00:00 2023-06-10 00:00:00 Outpatient CARMEN JEFF [id number] Elisa geraldine 2023-05-24 00:00:00 2023-05-24 00:00:00 Outpatient CARMEN JEFF [id number] [facility] 2023-05-09 00:00:00 2023-05-09 00:00:00 Outpatient HUNDL, CARMEN MILLIGAN [id number] [facility] 2023-05-08 00:00:00 2023-05-08 00:00:00 Outpatient HUNDL, CARMEN MILLIGAN [id number] [facility] 2023-04-07 00:00:00 2023-04-07 00:00:00 Outpatient HUNDL, CARMEN MILLIGAN [id number] [facility] 2023-03-27 09:00:00 2023-03-27 09:00:00 Outpatient HUNDL, CARMEN MILLIGAN [id number] [facility] 2023-03-12 10:30:00 2023-03-12 10:30:00 Outpatient HUNDL, CARMEN MILLIGAN [id number] [facility] 2023-02-01 00:00:00 2023-02-01 00:00:00 Outpatient PREZAS, YOVANA MILLIGAN [id number] [facility] 2023-01-17 00:00:00 2023-01-17 00:00:00 Outpatient HUNDL, CARMEN MILLIGAN [id number] [facility] 2023-01-15 10:00:00 2023-01-15 10:00:00 Outpatient HUNDL, CARMEN MILLIGAN [id number] [facility] 2023-01-11 14:00:00 2023-01-11 14:00:00 Outpatient HUNDL, CARMEN MILLIGAN [id number] Elisa Seybold 2023-01-10 00:00:00 2023-01-10 00:00:00 Outpatient PREZAS, YOVANA MILLIGAN [id number] [facility] 2023-01-10 00:00:00 2023-01-10 00:00:00 Outpatient HUNDL, CARMEN MILLIGAN [id number] Elisa Seybold 2023-01-09 00:00:00 2023-01-09 00:00:00 Outpatient HUNDL, CARMEN MILLIGAN [id number] Elisa [facility] 2023-01-02 00:00:00 2023-01-02 00:00:00 Outpatient CARMEN JEFF ELISA MILLIGAN [id number] Elisa [facility] 2022-12-20 10:00:00 2022-12-20 10:00:00 Outpatient HUNDCARMEN Talamantes ELISA MILLIGAN [id number] [facility] 2022-12-18 00:00:00 2022-12-18 00:00:00 Outpatient PREZAYOVANA Youssef ELISA MILLIGAN [id number] [facility] 2022-12-06 13:30:00 2022-12-06 13:30:00 Outpatient HUNDAlbin CARMEN ELISA MILLIGAN [id number] [facility] 2022-11-02 00:00:00 2022-11-02 00:00:00 Outpatient DAVIDSON NEFTALIKindra MILLIGAN [id number] [facility] 2022-10-26 00:00:00 2022-10-26 00:00:00 Outpatient DAVIDSONADITYA PINKKindra MILLIGAN [id number] [facility] 2022-10-24 10:00:00 2022-10-24 10:00:00 Outpatient PREZASYOVANA ELISA MILLIGAN [id number] [facility] 2022-10-22 00:00:00 2022-10-22 00:00:00 Outpatient PREZAS YOVANA MILLIGAN [id number] Elisa [facility] 2022-10-15 00:00:00 2022-10-15 00:00:00 Outpatient DAVIDSONADITYA PINKKindra MILLIGAN [id number] [facility] 2022-10-14 00:00:00 2022-10-14 00:00:00 Outpatient DAVIDSON, NEFTALI MILLIGAN [id number] [facility] 2022-10-11 00:00:00 2022-10-11 00:00:00 Outpatient MD ELISA BROOKS [id number] [facility] 2022-10-10 08:15:00 2022-10-10 08:15:00 Outpatient DAVIDSONNEFTALI PINK [id number] [facility] 2022-10-10 00:00:00 2022-10-10 00:00:00 Outpatient PREZAS, YOVANA MILLIGAN ELISA [id number] Elisa Seybold 2022-10-03 00:00:00 2022-10-03 00:00:00 Outpatient PREZAS, YOVANA MILLIGAN ELISA [id number] Elisa Seybold 2022-10-02 00:00:00 2022-10-02 00:00:00 Outpatient PREZAS, YOVANA MILLIGAN ELISA [id number] Elisa Seybold 2022-09-26 00:00:00 2022-09-26 00:00:00 Outpatient PREZAS, YOVANA ELISA ELISA [id number] [facility] 2022-09-26 00:00:00 2022-09-26 00:00:00 Outpatient ÁNGELA, TETE ELISA ELISA [id number] [facility] 2022-09-21 00:00:00 2022-09-21 00:00:00 Outpatient PREZAS, YOVANA MILLIGAN ELISA [id number] [facility] 2022-09-21 00:00:00 2022-09-21 00:00:00 Outpatient PREZAS, YOVANA ELISA MILLIGAN [id number] [facility] 2022-09-20 14:15:00 2022-09-20 14:15:00 Outpatient PREZAS, YOVANA ELISA MILLIGAN [id number] [facility] 2022-09-13 00:00:00 2022-09-13 00:00:00 Outpatient PREZAS, YOVNAA ELISA ELISA [id number] Elisa Seybold 2022-09-10 00:00:00 2022-09-10 00:00:00 Outpatient PREZAS, YOVANA ELISA MILLIGAN [id number] Elisa Seybold 2022-08-28 00:00:00 2022-08-28 00:00:00 Outpatient PREZAS, YOVANA ELISA MILLIGAN [id number] Elisa Seybold 2022-08-27 00:00:00 2022-08-27 00:00:00 Outpatient PREZAS, YOVANA ELISA MILLIGAN [id number] Elisa Rudd 2022-08-23 00:00:00 2022-08-23 00:00:00 Outpatient PREYOVANA GUAMAN [id number] Elisa Rudd 2022-08-22 10:00:00 2022-08-22 10:00:00 Outpatient LAB90 ELISA MILLIGAN [id number] Elisa Rudd 2022-08-22 09:15:00 2022-08-22 09:15:00 Outpatient PREZAYOVANA Youssef [id number] Elisa Rudd 2022-08-06 00:00:00 2022-08-06 00:00:00 Outpatient YOVANA RAMIREZ [id number] Elisa Rudd 2022-07-25 11:15:00 2022-07-25 11:15:00 Outpatient YOVANA RAMIREZ [id number] [facility] Notes Date/Time Note Provider Source 2023-01-15 09:50:39 [id number] ormatting of this note is different from the original.Chief Complaint Patient presents with REFILLS-NURSE/MD Refill Gabapentin, Sertraline, Propranolol, Trazadone, Amlodipine [place] [id number]:[id number] [id number] for patient [id number] NoteLNKELLAWTON INDIAN [facility] LAWTONEPC[facility] [facility] [id number] [facility]"
[2023-10-02 20:08] LABS: Absolute Basophils 0.1 K/uL (0-0.5); Absolute Eosinophils 0.1 K/uL (0-0.5); Absolute Lymphocytes (CBC) 2.8 K/uL (0.7-4.9); Absolute Monocytes 0.8 K/uL (0.1-1.3); Absolute Neutrophil 7.7 K/uL (1.8-8.0); Basophils % 0.6 % (0-1.3); Eosinophils % 1.3 % (0-4.4); Hematocrit 40.3 % (39.6-49.0); Hemoglobin 13.5 g/dL (13.6-17.9); Lymphocytes % 24.6 % (15.3-44.8); MCHC 33.4 g/dL (32.0-36.0); MCV 92.8 fL (80-100); MPV 9.2 fL (7.6-11.3); Monocytes % 6.6 % (3.3-12.3); Neutrophils % 66.9 % (41.7-73.7); Platelets 264 thou/uL (152-406); RBC Red Blood Cell Count 4.35 M/uL (4.33-5.43)
[2023-10-02 20:11] LABS: PT Prothrombin Time 13.6 SECONDS (9.5-12.5); Protime INR 1.24
[2023-10-02 20:32] LABS: ALT/SGPT 31 U/L (16-61); AST/SGOT 13 U/L (15-37); Albumin 3.4 g/dL (3.4-5.0); Albumin/Globulin Ratio 0.9 (1.1-1.8); Alkaline Phosphatase 110 U/L (45-117); Anion Gap 7.4 mEq/L (5.0-15.0); BUN Blood Urea Nitrogen 12 mg/dL (7-18); Bicarbonate 24 mEq/L (21-32); Bilirubin Total 0.3 mg/dL (0.2-1.0); Globulin 3.9 g/dL (2.3-3.5); Glomerular Filtration Rate 80 ml/min (=/>90); Glucose Level 107 mg/dL (74-106); NT PRO-BNP 34 pg/mL (<125); Potassium 3.4 mEq/L (3.5-5.1); Protein, Total 7.3 g/dL (6.4-8.2); Sodium Level 139 mEq/L (136-145); Troponin High Sensitivity 3.8 pg/mL (<58.9)
--- NOTE | 2023-10-02 20:35 | RAD REPORT ---
EXAM DESCRIPTION: CT - Head Brain Wo Cont - 10/02/2023 7:55 pm CLINICAL HISTORY: Blurred vision COMPARISON: None TECHNIQUE: Computed axial tomography of the head was obtained. IV contrast was not requested. All CT scans are performed using dose optimization technique as appropriate and may include automated exposure control or mA/KV adjustment according to patient size. FINDINGS: An intracranial bleed is not seen The ventricles are normal in caliber No extra-axial fluid collection is noted. Low-density area is present within left aspect of the rosemarie. Fluid within the sinuses/ mastoids is not seen. IMPRESSION: Low-density area within the left aspect of the rosemarie probably artifact. An infarct althou gh possible is considered less likely. If clinically indicated MRI could be obtained for further evaluation
--- NOTE | 2023-10-02 20:39 | RAD REPORT ---
EXAM DESCRIPTION: Seth Single View10/02/2023 8:13 pm CLINICAL HISTORY: Chest pain COMPARISON: 2021 FINDINGS: The lungs appear clear of acute infiltrate. The heart is normal size IMPRESSION: No acute abnormalities displayed
[2023-10-02 20:47] LABS: Bilirubin Direct < 0.2 mg/dL (0-0.2); Bilirubin Indirect, Calculated 0.1 mg/dL (0.2-0.8)
[2023-10-02] MEDS ORDERED: ASPIRIN 81 MG CHEWABLE TABLET ONE (21:08)
--- NOTE | 2023-10-02 23:19 | EDPHYS ---
Physician Documentation [facility] Name: Jerry Kirkpatrick Age: 53 yrs Sex: Male : 1970 Arrival Date: 10/02/2023 Time: 19:10 Bed 14 Private MD: ED Physician Zayda Little HPI: 10/01 19:37 This 53 yrs old Male presents to ER via Ambulatory with complaints of Chest sb4 Pain, High Blood Pressure, Eye Pain. 19:37 patient reports chest pain and elevated BP readings over the past 3 days. additionally, sb4 he states that yesterday he noticed his left eye was very red, painful, and had decreased vision. he denies any recent changes in medications. states he has been a little more stressed than usual . Historical: - Allergies: 19:32 tramadol; kc6 - PMHx: 19:32 depressive disorder; Gastric Reflux; Hypertensive disorder; kc6 - PSHx: 19:32 carpal tunnel; LEFT ELBOW SURGERY (carpal tunnel); kc6 - Immunization history:: Adult Immunizations up to date. - Infectious Disease History:: Denies. - Social history:: Smoking status: Patient reports the use of cigarette tobacco products, denies chronic smoking, but will smoke occasionally. ROS: 19:37 Constitutional: Negative for fever, chills, and weight loss, sb4 19:37 Eyes: Positive for blurry vision, pain, redness, visual disturbance, 19:37 Cardiovascular: Positive for chest pain, 19:37 All other systems are negative, Exam: 19:37 Constitutional: This is a well developed, well nourished patient who is awake, alert, sb4 and in no acute distress. Head/Face: Normocephalic, atraumatic. ENT: Mucous membranes moist. Cardiovascular: Regular rate and rhythm with a normal S1 and S2. Respiratory: Lungs have equal breath sounds bilaterally, clear to auscultation and percussion. No rales, rhonchi or wheezes noted. No increased work of breathing, no retractions or nasal flaring. Abdomen/GI: Soft, non-tender, no distension. Skin: Warm, dry with normal turgor. Normal color with no rashes, no lesions, and no evidence of cellulitis. MS/ Extremity: Pulses equal, no cyanosis. Neurovascular intact. Full, normal range of motion. 19:37 Eyes: Periorbital structures: appear normal, Pupils: equal, round, and reactive to light and accomodation, Extraocular movements: intact throughout, Conjunctiva: subconjunctival hemorrhage(s), seen in the left eye, entire medial aspect, Vital Signs: 19:31 BP 158 / 103; Pulse 67; Resp 16 S; Temp 98.3(O); Pulse Ox 98% on R/A; Weight 91.17 kg kc6 (R); Height 5 ft. 9 in. (R); Pain 6/10; 20:04 BP 134 / 99; Pulse 71; Resp 15 S; Pulse Ox 95% on R/A; kc6 21:12 BP 137 / 98; Pulse 72; Resp 15 S; Pulse Ox 96% on R/A; kc6 21:54 BP 133 / 93; Pulse 60; Resp 15 S; Pulse Ox 97% on R/A; kc6 22:30 BP 137 / 96; Pulse 66; Resp 16; Pulse Ox 97% ; cm10 22:30 BP 134 / 96; Pulse 66; Resp 16; Pulse Ox 96% ; cm10 23:28 BP 134 / 94; Pulse 62; Resp 16; Pulse Ox 97% on R/A; cm10 19:31 Body Mass Index 29.68 (91.17 kg, 175.26 cm) kc6 19:31 Pain Scale: Adult kc6 Visual Acuity: 23:06 Left Eye Visual acuity 20/50, ; Right Eye Visual acuity 20/40, ; Both Eyes Visual cm10 acuity 20/40; Without Lenses; MDM: 19:23 Patient medically screened. sb4 21:34 Scoring Tools HEART Score: History: ECG: Age: Risk Factors: 1 or 2 risk factors (1), sb4 Troponin: Total Score = 2. 23:17 Data reviewed: vital signs, nurses notes, lab test result(s), EKG, radiologic studies, sb4 and as a result, I will discharge patient. Consideration of Admission/Observation Escalation of care including admission/observation considered. Counseling: I had a detailed discussion with the patient and/or guardian regarding the historical points, exam findings, and any diagnostic results supporting the discharge/admit diagnosis, lab results, radiology results, the need for outpatient follow up, a ld teacher, to return to the emergency department if symptoms worsen or persist or if there are any questions or concerns that arise at home. Special discussion: Based on the patient's history, exam, and Dx evaluation, there is no indication for emergent intervention or inpatient Tx. It is understood by the patient/guardian that if the Sx's persist or worsen they need to return immediately for re-evaluation. 10/01 19:36 Order name: Basic Metabolic Panel; Complete Time: 20:53 sb4 10/01 19:36 Order name: CBC with Diff; Complete Time: 20:10 4 10/01 19:36 Order name: LFT's; Complete Time: 20:53 sb4 10/01 19:36 Order name: Magnesium; Complete Time: 20:53 sb4 10/01 19:36 Order name: NT PRO-BNP; Complete Time: 20:53 10/01 19:36 Order name: PT-INR; Complete Time: 20:13 10/01 19:36 Order name: Troponin HS; Complete Time: 20:53 sb4 10/01 22:03 Order name: Troponin High Sensitivity; Complete Time: 22:49 4 10/01 19:36 Order name: XRAY Chest (1 view); Complete Time: 20:42 sb4 10/01 19:36 Order name: Head Brain Wo Cont CT; Complete Time: 20:36 10/01 19:36 Order name: Cardiac monitoring; Complete Time: 19:41 10/01 19:36 Order name: EKG - Nurse/Tech; Complete Time: 19:37 10/01 19:36 Order name: IV Saline Lock; Complete Time: 19:41 10/01 19:36 Order name: Labs collected and sent; Complete Time: 19:41 10/01 19:36 Order name: O2 Per Protocol; Complete Time: 19:41 sb10/01 19:36 Order name: O2 Sat Monitoring; Complete Time: 19:41 10/01 22:50 Order name: Visual Acuity; Complete Time: 23:06 sb4 EC:36 Rate is 72 beats/min. Rhythm is regular, Normal Sinus Rhythm. VA interval is normal at sb4 138 msec. QRS interval is normal at 86 msec. QT interval is normal at 398 msec. No Q waves. T waves are Normal. No ST changes noted. Clinical impression: Normal ECG and No evidence of ischemia. Interpreted by me. Reviewed by me. Administered Medications: 21:11 Drug: Aspirin PO Chewable Tablet 324 mg PO once; 81 mg tablets x 4 Route: PO; kc6 23:06 Follow up: Response: No adverse reaction cm10 Disposition Summary: 10/02/23 23:18 Discharge Ordered Notes: Location: Home sb4 Problem: new sb4 Symptoms: have improved sb4 Condition: Stable sb4 Diagnosis - Chest pain, unspecified sb4 - Essential (primary) hypertension sb4 - Conjunctival hemorrhage, left eye sb4 Followup: sb4 - With: Rudy Hope MD - When: 1 week - Reason: Further diagnostic work-up, Recheck today's complaints, Re-evaluation by your physician Discharge Instructions: - Discharge Summary Sheet sb4 - Hypertension, Adult sb4 - Subconjunctival Hemorrhage sb4 - Nonspecific Chest Pain, Adult, [id number] sb4 Forms: - Patient Portal Instructions sb4 - Leadership Thank You Letter sb4 Prescriptions: - clonidine HCl 0.1 mg Oral tablet - take 1 tablet ORAL route every hour as needed for hypertensive emergency, SBP > sb4 180 or DBP > 100; do not exceed 6 doses in a 24 hr period; 5 tablet; Refills: 0, Product Selection Permitted Signatures: Dispatcher [employer] EDMS Cristina Santillan RN RN kc6 Laura Oscar PA-C PA-C sb4 Tanya Valero RN cm10 Corrections: (The following items were deleted from the chart) 19:36 19:36 BASIC METABOLIC PANEL+C.LAB.BRZ ordered. EDMS EDMS 19:36 19:36 CBC+H.LAB.BRZ ordered. EDMS EDMS 19:36 19:36 HEPATIC FUNCTION+C.LAB.BRZ ordered. EDMS EDMS 19:36 19:36 MAGNESIUM+C.LAB.BRZ ordered. EDMS EDMS 19:36 19:36 PROBNP+C.LAB.BRZ ordered. EDMS EDMS 19:36 19:36 PROTIME (+INR)+COAG.LAB.BRZ ordered. EDMS EDMS 19:36 19:36 Troponin High Sensitivity+C.LAB.BRZ ordered. EDMS EDMS 19:36 19:36 Chest Single View+RAD.RAD.BRZ ordered. EDMS EDMS 19:36 19:36 Head Brain Wo Cont+CT.RAD.BRZ ordered. EDMS EDMS : 20:55 Misc. Order ordered. sb4 sb4 : 22:03 Troponin High Sensitivity+C.LAB.BRZ ordered. EDMS EDMS
--- NOTE | 2023-10-02 23:19 | ER ---
Nurse's Notes [facility] Name: Jerry Kirkpatrick Age: 53 yrs Sex: Male : 1970 Arrival Date: 10/02/2023 Time: 19:10 Bed 14 Private MD: Diagnosis: Chest pain, unspecified;Essential (primary) hypertension;Conjunctival hemorrhage, left eye Presentation: 10/01 19:31 Chief complaint: Patient states: LEFT SIDED CHEST PAIN AND LEFT EYE PAIN SINCE THIS AM. kc6 PT REPORTS DECREASED VISION TO THE LEFT EYE. Coronavirus screen: At this time, the client does not indicate any symptoms associated with coronavirus-19. Ebola Screen: No symptoms or risks identified at this time. Initial Sepsis Screen: Does the patient meet any 2 criteria? No. Patient's initial sepsis screen is negative. Does the patient have a suspected source of infection? No. Patient's initial sepsis screen is negative. Risk Assessment: Do you want to hurt yourself or someone else? Patient reports no desire to harm self or others. Onset of symptoms was October 02, 2023. 19:31 Method Of Arrival: Ambulatory kc6 19:31 Acuity: MARTIN 3 kc6 Triage Assessment: 19:32 General: Appears in no apparent distress. comfortable, well groomed, well developed, kc6 Behavior is calm, cooperative, appropriate for age. Pain: Complains of pain in anterior aspect of left upper chest Pain currently is 6 out of 10 on a pain scale. EENT: Sclera/Cornea are reddened in inner aspect of conjunctiva of left eye Reports blurred vision in LEFT EYE since THIS AM. Neuro: Level of Consciousness is awake, alert, obeys commands, Oriented to person, place, time, situation, Appropriate for age. Cardiovascular: Reports chest pain, Heart tones S1 S2 present Capillary refill < 3 seconds. Respiratory: Airway is patent Trachea midline Respiratory effort is even, unlabored, Respiratory pattern is regular, symmetrical. GI: No signs and/or symptoms were reported involving the gastrointestinal system. : No signs and/or symptoms were reported regarding the genitourinary system. Derm: No signs and/or symptoms reported regarding the dermatologic system. Skin is intact, is healthy with good turgor, Skin is pink, warm \T\ dry. Musculoskeletal: No signs and/or symptoms reported regarding the musculoskeletal system. Circulation, motion, and sensation intact. Capillary refill < 3 seconds, Range of motion: intact in all extremities. Historical: - Allergies: 19:32 tramadol; kc6 - PMHx: 19:32 depressive disorder; Gastric Reflux; Hypertensive disorder; kc6 - PSHx: 19:32 carpal tunnel; LEFT ELBOW SURGERY (carpal tunnel); kc6 - Immunization history:: Adult Immunizations up to date. - Infectious Disease History:: Denies. - Social history:: Smoking status: Patient reports the use of cigarette tobacco products, denies chronic smoking, but will smoke occasionally. Screenin:35 [facility] ED Fall Risk Assessment (Adult) History of falling in the last 3 months, kc6 including since admission No falls in past 3 months (0 pts) Confusion or Disorientation No (0 pts) Intoxicated or Sedated No (0 pts) Impaired Gait No (0 pts) Mobility Assist Device Used No (0 pt) Altered Elimination No (0 pt) Score/Fall Risk Level 0 - 2 = Low Risk. Abuse screen: Denies threats or abuse. Denies injuries from another. Nutritional screening: No deficits noted. Tuberculosis screening: No symptoms or risk factors identified. Assessment: 19:34 Reassessment: PLEASE SEE TRIAGE. kc6 20:34 Reassessment: Patient appears in no apparent distress at this time. No changes from [facility] previously documented assessment. Patient and/or family updated on plan of care and expected duration. Pain level reassessed. Patient is alert, oriented x 3, equal unlabored respirations, skin warm/dry/pink. 21:34 Reassessment: Patient appears in no apparent distress at this time. No changes from [facility] previously documented assessment. Patient and/or family updated on plan of care and expected duration. Pain level reassessed. Patient is alert, oriented x 3, equal unlabored respirations, skin warm/dry/pink. 22:19 Reassessment: Patient appears in no apparent distress at this time. Patient is alert, cm10 oriented x 3, equal unlabored respirations, skin warm/dry/pink. Assumed care of patient at this time. Pt resting comfortably watching TV. Pt requesting water. Updated patient on plan of care, repeat troponin drawn. Pt not on monitoring coordinator when care assumed, pt placed on monitor. General: Appears in no apparent distress. comfortable, Behavior is calm, cooperative. Pain: Complains of pain in anterior aspect of left upper chest Pain does not radiate. Pain began gradually, Is intermittent. Neuro: No deficits noted. Level of Consciousness is awake, alert, obeys commands, Oriented to person, place, time, situation, Appropriate for age. Cardiovascular: No deficits noted. Reports chest pain. Respiratory: No deficits noted. Airway is patent Respiratory effort is even, unlabored, Respiratory pattern is regular, symmetrical. 23:13 Reassessment: Patient appears in no apparent distress at this time. No changes from cm10 previously documented assessment. Patient and/or family updated on plan of care and expected duration. Pain level reassessed. Patient is alert, oriented x 3, equal unlabored respirations, skin warm/dry/pink. Vital Signs: 19:31 BP 158 / 103; Pulse 67; Resp 16 S; Temp 98.3(O); Pulse Ox 98% on R/A; Weight 91.17 kg kc6 (R); Height 5 ft. 9 in. (R); Pain 6/10; 20:04 BP 134 / 99; Pulse 71; Resp 15 S; Pulse Ox 95% on R/A; kc6 21:12 BP 137 / 98; Pulse 72; Resp 15 S; Pulse Ox 96% on R/A; kc6 21:54 BP 133 / 93; Pulse 60; Resp 15 S; Pulse Ox 97% on R/A; kc6 22:30 BP 137 / 96; Pulse 66; Resp 16; Pulse Ox 97% ; cm10 22:30 BP 134 / 96; Pulse 66; Resp 16; Pulse Ox 96% ; cm10 23:28 BP 134 / 94; Pulse 62; Resp 16; Pulse Ox 97% on R/A; cm10 19:31 Body Mass Index 29.68 (91.17 kg, 175.26 cm) kc6 19:31 Pain Scale: Adult kc6 Vitals: 22:27 Cardiac Rhythm Assessment Regular Sinus rhythm. cm10 Visual Acuity: 23:06 Left Eye Visual acuity 20/50, ; Right Eye Visual acuity 20/40, ; Both Eyes Visual cm10 acuity 20/40; Without Lenses; ED Course: 19:15 Patient arrived in ED. gm2 19:22 Cristina Santillan, MELLISSA is Primary Nurse. kc6 19:22 Laura Oscar PA-C is PHCP. sb4 19:22 Zayda Little MD is Attending Physician. sb4 19:32 Triage completed. kc6 19:32 Arm band placed on. EKG completed in triage. Results shown to MD. kc6 19:35 Patient has correct armband on for positive identification. Bed in low position. Call kc6 light in reach. Side rails up X 1. Client placed on continuous cardiac and pulse oximetry monitoring. NIBP monitoring applied. clinical research monitor on. 19:55 Basic Metabolic Panel Sent. rc3 19:55 CBC with Diff Sent. rc3 19:55 LFT's Sent. rc3 19:55 Magnesium Sent. rc3 19:55 NT PRO-BNP Sent. rc3 19:55 PT-INR Sent. rc3 19:55 Troponin HS Sent. rc3 19:57 Head Brain Wo Cont CT In Process Unspecified. EDMS 20:11 Inserted saline lock: 22 gauge in right forearm, using aseptic technique. kc6 20:15 XRAY Chest (1 view) In Process Unspecified. EDMS 22:00 Report given to Tanya Valero RN. [facility] 22:00 O2 via Room air. cm10 22:17 Troponin High Sensitivity Sent. cm10 22:28 Primary Nurse role handed off by Cristina Santillan RN cm10 22:28 Tanya Valero, RN is Primary Nurse. cm10 23:18 Rudy Hope MD is Referral Physician. sb4 23:33 No provider procedures requiring assistance completed. IV discontinued, intact, cm10 bleeding controlled, No redness/swelling at site. Pressure dressing applied. 23:34 Provided Education on: Follow-up instructions. cm10 Administered Medications: 21:11 Drug: Aspirin PO Chewable Tablet 324 mg PO once; 81 mg tablets x 4 Route: PO; kc6 23:06 Follow up: Response: No adverse reaction cm10 Medication: 23:34 VIS not applicable for this client. cm10 Outcome: 23:18 Discharge ordered by . sb4 23:33 Discharged to home ambulatory, cm10 23:33 Condition: good 23:33 Discharge instructions given to patient, Instructed on discharge instructions, follow up and referral plans. medication usage, Demonstrated understanding of instructions, follow-up care, medications, Prescriptions given X 1, 23:34 Patient left the ED. cm10 Signatures: Dispatcher [employer] EDMS Cristina Santillan RN RN Laura Forrester PA-C PA-C sb4 Tanya Valero, RN RN cm10 Claudine Obando 2 Sheri Stewart 3
[2023-10-02 23:46] VITALS: TEMP 98.3; O2SAT 97
[2023-10-03 00:11] VITALS: BP 134/94
--- NOTE | 2023-10-04 16:56 | EKG ---
Test Date: 2023-10-02 Test Time: 19:29:43 [place] Operator: RRC MEASUREMENT RESULTS: Intervals: Rate: 72 WA: 138 QRSD: 86 QT: 398 QTc: 435 [place]: P: 38 WA: 138 QRS: 3 T: 41 INTERPRETIVE STATEMENTS: Normal sinus rhythm Normal ECG Compared to ECG 08/24/2021 17:37:14 Sinus tachycardia no longer present Right-axis deviation no longer present T-wave abnormality no longer present Electronically Signed On 10-04-23 16:49:53 CDT by Rudy Hope
== END 2023-10-02 23:34 | disposition home or self-care (01) ==
LOC: ER 19:10
DX: R07.9 Chest pain, unspecified (principal); H11.32 Conjunctival hemorrhage, left eye; I10 Essential (primary) hypertension; K21.9 Gastro-esophageal reflux disease without esophagitis; F32.A Depression, unspecified; Z88.5 Allergy status to narcotic agent; F17.210 Nicotine dependence, cigarettes, uncomplicated
CPT/HCPCS: 36415; 70450; 71045; 80048; 80076; 83735; 83880; 84484; 85025; 85610; 93005; 99285